=== PATIENT | female | born 1990 | race Caucasian/White ===

== ENCOUNTER 2016-08-22 17:14 | Inpatient (IN) | payer OTHER ==
[~2016-08-22] VITALS: Ht 167.6 cm; Wt 55.3 kg
[2016-08-22 19:41] LABS: BASOPHIL % 0.1 % (0-2); PLATELET COUNT 211 x10^3mcL (130-400)
[2016-08-22 19:42] LABS: CALCIUM 9.2 mg/dL (8.5-10.1); CARBON DIOXIDE 26.3 mmol/L (21-32); CHLORIDE SERUM 102 mmol/L (98-107); CREATININE SERUM 0.7 mg/dL (0.6-1.0); GFR1 > 60 mL/min; GLUCOSE SERUM 111 mg/dL (74-106); POTASSIUM SERUM 3.5 mmol/L (3.5-5.1); SODIUM SERUM 138 mmol/L (136-145)
[2016-08-22 19:47] LABS: ALKALINE PHOSPHATASE 79 U/L (46-116); ALT/SGPT 17 U/L (14-59); AST/SGOT 17 U/L (15-37); BILIRUBIN TOTAL 0.4 mg/dL (0.20-1.00); LIPASE 98 IU/L (73-393); TOTAL PROTEIN, SERUM 7.7 g/dL (6.4-8.2)
[2016-08-22 20:00] LABS: T3 TOTAL 1.23 ng/mL
[2016-08-22 20:20] LABS: CHOLESTEROL/HDL RATIO 2.5; MAGNESIUM 1.8 mg/dL (1.8-2.4); PHOSPHOROUS 3.3 mg/dL (2.5-4.9)
[2016-08-22 20:21] VITALS: BP 102/54
[2016-08-22 20:27] LABS: FREE T4 0.96 ng/dL (0.76-1.46); FREE THYROXINE INDEX 2.3 ug/dL (1.4-4.5); T4(THYROXINE) 7.3 ug/dL (4.7-13.3)
[2016-08-23 01:19] VITALS: BP 93/58
[2016-08-23 02:28] LABS: UA SPECIFIC GRAVITY 1.025 (1.005-1.035); microscopic required? YES; urine erythrocyte 3+ (NEGATIVE)
[2016-08-23 02:52] LABS: AMPHETAMINE QUAL UR NONE DETECTED (NEG <=1000)
[2016-08-23 05:39] VITALS: BP 100/63
[2016-08-23 06:16] LABS: BASOPHIL % 0.4 % (0-2); PLATELET COUNT 188 x10^3mcL (130-400); RED CELL DISTRIBUTION WIDTH 12.7 % (11.5-14.5)
[2016-08-23 06:25] LABS: CALCIUM 8.5 mg/dL (8.5-10.1); CARBON DIOXIDE 25.3 mmol/L (21-32); CHLORIDE SERUM 108 mmol/L (98-107); CREATININE SERUM 0.6 mg/dL (0.6-1.0); GFR1 > 60 mL/min; GLUCOSE SERUM 99 mg/dL (74-106); PHOSPHOROUS 3.5 mg/dL (2.5-4.9); POTASSIUM SERUM 4.2 mmol/L (3.5-5.1); SODIUM SERUM 142 mmol/L (136-145)
[2016-08-23 09:05] VITALS: BP 102/57
[2016-08-23 13:43] VITALS: BP 103/50
[2016-08-23 17:16] VITALS: BP 101/36
[2016-08-23 21:48] VITALS: BP 95/51
[2016-08-24 06:19] VITALS: BP 99/48
[2016-08-24 06:24] LABS: BASOPHIL % 0.4 % (0-2); PLATELET COUNT 175 x10^3mcL (130-400); RED CELL DISTRIBUTION WIDTH 12.4 % (11.5-14.5)
[2016-08-24 06:38] LABS: CALCIUM 8.4 mg/dL (8.5-10.1); CARBON DIOXIDE 24.3 mmol/L (21-32); CHLORIDE SERUM 108 mmol/L (98-107); CREATININE SERUM 0.6 mg/dL (0.6-1.0); GFR1 > 60 mL/min; GLUCOSE SERUM 92 mg/dL (74-106); MAGNESIUM 1.8 mg/dL (1.8-2.4); PHOSPHOROUS 3.4 mg/dL (2.5-4.9); POTASSIUM SERUM 4.3 mmol/L (3.5-5.1); SODIUM SERUM 141 mmol/L (136-145)
[2016-08-24 10:54] VITALS: BP 94/53
[2016-08-24 13:34] VITALS: BP 94/53
[2016-08-24 14:37] VITALS: BP 95/52
[2016-08-24] MEDS ORDERED: APAP/HYDROCODON1 T13 PO (16:11)
[2016-08-24] MEDS ORDERED: ZOFRAN8 MG PO (16:12)
[2016-08-24] MEDS ORDERED: COLACE100 MG PO (16:24)
== END 2016-08-24 17:34 | disposition home or self-care (01) | DRG 251 ==
LOC: ED 17:14 → DU 19:08
PROVIDERS: Emergency Medicine; ADMIT Family Medicine
DX: R10.9 Unspecified abdominal pain (principal); O00.90 Unspecified ectopic pregnancy without intrauterine pregnancy; N83.202 Unspecified ovarian cyst, left side; E03.9 Hypothyroidism, unspecified; D64.9 Anemia, unspecified; Z68.1 Body mass index [BMI] 19.9 or less, adult
CPT/HCPCS: 83880; 84439; J2270; J2405; J2765; J7030; J9260